=== PATIENT | female | born 2000 | race Native Hawaiian/Other Pacific Islander ===

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

== ENCOUNTER 2021-05-16 18:02 | Emergency (ER) | payer MEDICAID ==
[2021-05-16 19:39] VITALS: BP 121/71
[2021-05-16 20:42] LABS: Bacteria,Urine 4+ /HPF (Negative); Bilirubin,Urine NEG (Negative); Blood,Urine SM (Negative); Color,Urine Yellow (Yellow); Mucus,Urine FEW /HPF; Protein,Urine <15 mg/dL mg/dL (Negative); Urobilinogen,Urine < 2.0 mg/dL (<2.0)
[2021-05-16 20:45] LABS: Basophils % (Auto) 0.4 % (0.0-1.8); Eosinophils # (Auto) 0.4 K/mm3 (0.0-0.4); Eosinophils % (Auto) 4.4 % (0.0-4.3); Hematocrit 40.6 % (30.3-42.9); Hemoglobin 13.7 gm/dl (10.1-14.3); Lymphocytes % (Auto) 32.1 % (13.4-35.0); Mean Corpuscular HGB Conc 34 % (30-34); Mean Corpuscular Volume 80 fl (79-97); Monocytes # (Auto) 0.4 K/mm3 (0.0-0.8); Monocytes % (Auto) 4.6 % (0.0-7.3); Platelet Count 236 K/mm3 (140-440); Red Blood Count 5.09 M/mm3 (3.65-5.03); Red Cell Distribution Width 15.9 % (13.2-15.2)
--- NOTE | 2021-05-16 22:14 | Emergency Department Report ---
ED Female HPI - General Chief complaint: Vaginal Bleeding Stated complaint: BLEED IN URINE/3 MONTHS Time Seen by Provider: 05/16/21 22:02 Source: patient Mode of arrival: Ambulatory Limitations: No Limitations - History of Present Illness Initial comments: Chief complaint: Vaginal spotting HPI: This is a 21-year-old who is currently 12 weeks who presents with vaginal spotting. Last night when she wiped she saw pink vaginal discharge. She denies abdominal pain. She denies current bleeding. Her next appointment is scheduled for Tuesday. First ultrasound will be performed at that time. Complaint: other (Vaginal spotting) -: Gradual, Last night Severity: mild Consistency: now resolved Improves with: none Worsens with: none - Related Data Home Medications Medication Instructions Recorded Confirmed Last Taken No.137/Iron/Folic Acd 1 tab PO DAILY 08/13/19 08/14/19 08/12/19 [[facility] Tablet] 2100 Previous Rx's Medication Instructions Recorded Last Taken Type HYDROcodone/APAP 5-325 [Andale 1 - 2 each PO Q4HR PRN #30 tablet 08/13/19 Unknown Rx 5/325] Allergies Allergy/AdvReac Type Severity Reaction Status Date / Time No Known Allergies Allergy Unverified 08/13/19 13:12 ED Review of Systems ROS: Stated complaint: BLEED IN URINE/3 MONTHS Other details as noted in HPI Comment: All other systems reviewed and negative Constitutional: denies: chills, fever, malaise Respiratory: denies: cough, shortness of breath Gastrointestinal: denies: abdominal pain, nausea, vomiting Genitourinary: denies: urgency, dysuria ED Past Medical Hx - Past Medical History Previous Medical History?: No Hx Hypertension: No Hx Diabetes: No Hx Deep Vein Thrombosis: No Hx Renal Disease: No Hx Sickle Cell Disease: No Hx Seizures: No Hx Asthma: No Hx HIV: No - Surgical History Past Surgical History?: Yes Additional Surgical History: - Social History Smoking Status: Never Smoker Substance Use Type: None - Medications Home Medications: Home Medications Medication Instructions Recorded Confirmed Last Taken Type HYDROcodone/APAP 5-325 [Andale 1 - 2 each PO Q4HR PRN #30 tablet 08/13/19 Unknown Rx 5/325] No.137/Iron/Folic Acd 1 tab PO DAILY 08/13/19 08/14/19 08/12/19 History [[facility] Tablet] 2100 ED Physical Exam - General Limitations: No Limitations General appearance: alert, in no apparent distress, other (Well-appearing no acute distress) - Head Head exam: Present: atraumatic, normocephalic - Eye Eye exam: Present: normal appearance - ENT ENT exam: Present: mucous membranes moist - Neck Neck exam: Present: normal inspection - Respiratory Respiratory exam: Present: normal lung sounds bilaterally. Absent: respiratory distress - Cardiovascular Cardiovascular Exam: Present: regular rate, normal rhythm. Absent: systolic mur mur, diastolic murmur, rubs, gallop - GI/Abdominal GI/Abdominal exam: Present: soft, normal bowel sounds. Absent: distended, tenderness, guarding, rebound - Extremities Exam Extremities exam: Present: normal inspection - Back Exam Back exam: Present: normal inspection - Neurological Exam Neurological exam: Present: alert, oriented X3 - Psychiatric Psychiatric exam: Present: normal affect, normal mood - Skin Skin exam: Present: warm, dry, intact, normal color. Absent: rash ED Course Vital Signs 05/16/21 19:35 Temperature 98.3 F Pulse Rate 91 H Respiratory 18 Rate Blood Pressure 121/71 O2 Sat by Pulse 100 Oximetry ED Medical Decision Making - Lab Data Result diagrams: 05/16/21 20:34 Laboratory Results - last 24 hr 05/16/21 05/16/21 05/16/21 19:48 20:34 20:34 WBC 9.3 RBC 5.09 H Hgb 13.7 Hct 40.6 MCV 80 MCH 27 L MCHC 34 RDW 15.9 H Plt Count 236 Lymph % (Auto) 32.1 Craven % (Auto) 4.6 Eos % (Auto) 4.4 H Baso % (Auto) 0.4 Lymph # (Auto) 3.0 Craven # (Auto) 0.4 Eos # (Auto) 0.4 Baso # (Auto) 0.0 Seg Neutrophils % 58.5 Seg Neutrophils # 5.4 HCG, Quant 67391 H Urine Color Yellow Urine Turbidity Slightly-cloudy Urine pH 6.0 Ur Specific [place] 1.013 Urine Protein <15 mg/dl Urine Glucose (UA) Neg Urine Ketones Neg Urine Blood Sm Urine Nitrite Neg Urine Bilirubin Neg Urine Urobilinogen < 2.0 Ur Leukocyte Esterase Neg Urine WBC (Auto) 3.0 Urine RBC (Auto) 2.0 U Epithel Cells (Auto) 4.0 Urine Bacteria (Auto) 4+ Urine Mucus Few Blood Type 05/16/21 20:34 WBC RBC Hgb Hct MCV MCH MCHC RDW Plt Count Lymph % (Auto) Craven % (Auto) Eos % (Auto) Baso % (Auto) Lymph # (Auto) Craven # (Auto) Eos # (Auto) Baso # (Auto) Seg Neutrophils % Seg Neutrophils # HCG, Quant Urine Color Urine Turbidity Urine pH Ur Specific [place] Urine Protein Urine Glucose (UA) Urine Ketones Urine Blood Urine Nitrite Urine Bilirubin Urine Urobilinogen Ur Leukocyte Esterase Urine WBC (Auto) Urine RBC (Auto) U Epithel Cells (Auto) Urine Bacteria (Auto) Urine Mucus Blood Type A POSITIVE - Medical Decision Making Threatened miscarriage: CBC chemistry within normal limits. Blood type a positive. hCG appropriately elevated. Patient given return precautions inc luding significant bleeding or abdominal pain. Critical care attestation.: If time is entered above; I have spent that time in minutes in the direct care of this critically ill patient, excluding procedure time. ED Disposition Clinical Impression: Threatened miscarriage Disposition: 01 HOME / SELF CARE / HOMELESS Is pt being admited?: No Does the pt Need Aspirin: No Condition: Stable Instructions: Threatened Miscarriage Referrals: PRIMARY CARE [Referring] - 3-5 Days Forms: Work/School Release Form(ED)
== END 2021-05-16 22:26 | disposition home or self-care (01) ==
LOC: ED 18:02
DX: O26.891 Other specified pregnancy related conditions, first trimester (principal); N89.8 Other specified noninflammatory disorders of vagina; Z3A.12 12 weeks gestation of pregnancy; Z79.899 Other long term (current) drug therapy; Z98.890 Other specified postprocedural states
CPT/HCPCS: 36415; 81001; 84702; 85025; 86900; 86901; 99283

== ENCOUNTER 2021-11-25 00:06 | Outpatient (CLI) | payer MEDICAID ==
--- NOTE | 2021-11-25 02:58 | Ultrasound Report ---
OB ultrasound INDICATION: Leaking fluid FINDINGS: Single live intrauterine in cephalic position. JAKE measures 14.7 cm. Placenta is anterior. heart rate 138. Cervical length 4.6 cm. The BPD measures 35 weeks 4 days. Head circum ference 36 weeks 3 days. Abdominal circumference 38 weeks 0 days. Femoral length 36 weeks 1 day. Ultr asound age 36 weeks 4 days. weight 3118 g. IMPRESSION: Single live intrauterine as described above. Ultrasound age 36 weeks 4 days. Signer Name: Bartolome Chambers MD Signed: 11/25/2021 2:53 AM Workstation Name: [id number]
== END 2021-11-25 02:59 | disposition home or self-care (01) ==
LOC: TRG 00:06 → APU 00:08 → TRG 02:59
PROVIDERS: ATTEND Obstetrics & Gynecology
DX: O26.893 Other specified pregnancy related conditions, third trimester (principal); Z3A.38 38 weeks gestation of pregnancy
CPT/HCPCS: 36415; 76816; 84112

== ENCOUNTER 2021-12-02 07:24 | Observation (INO) | payer MEDICAID ==
[2021-12-01 11:39] LABS: Hematocrit 38.1 % (30.3-42.9); Hemoglobin 12.4 gm/dl (10.1-14.3); Mean Corpuscular HGB Conc 33 % (30-34); Mean Corpuscular Volume 73 fl (79-97); Platelet Count 201 K/mm3 (140-440); Red Blood Count 5.23 M/mm3 (3.65-5.03); Red Cell Distribution Width 15.8 % (13.2-15.2)
[2021-12-02 10:39] VITALS: BP 116/70
--- NOTE | 2021-12-02 12:19 | Ultrasound Report ---
ULTRASOUND BIOPHYSICAL PROFILE INDICATION: BPP, JAKE EFW for well being. COMPARISON: None available. FINDINGS: heart rate is 127 beats per minute. breathing movement = 2 Gross body movement = 2 tone = 2 Qualitative amniotic fluid volume = 2 IMPRESSION: biophysical profile = 11/16 Signer Name: Satish Womack Jr, MD Signed: 12/02/2021 12:15 PM Workstation Name: [id number]
--- NOTE | 2021-12-02 12:21 | Ultrasound Report ---
ULTRASOUND OBSTETRIC COMPLETE INDICATION / CLINICAL INFORMATION: BPP, JAKE EFW well being. Clinical Gestational Age (GA) in weeks.days: 39.6 TECHNIQUE: Transabdominal. COMPARISON: None available. FINDINGS: NUMBER: Single PRESENTATION: cephalic PLACENTA: Anterior, left lateral, grade 2 and free of the os. MATERNAL ADNEXA: No significant abnormality. AMNIOTIC FLUID VOLUME: normal AMNIOTIC FLUID INDEX (JAKE) in cm (if measured): 11.1 ANATOMY: anatomical survey was not performed. MEASUREMENTS: - Biparietal Diameter = 8.6 cm = 34.4 weeks.days - Head Circumference = 31.9 cm = 35.6 weeks.days - Abdominal Circumference = 36.4 cm = 40.2 weeks.days - Femur Length = 7.3 cm = 37.2 weeks.days - Estimated Weight (in grams, if calculated): 3480 - Heart Rate (beats per minute): 135 ADDITIONAL FINDINGS: None. PERCENTILE ESTIMATED WEIGHT (if calculated): 40 AVERAGE ULTRASOUND AGE (AUA) in weeks.days = 37.0 IMPRESSION: 1. Single intrauterine with AUA of 37.0 weeks.days 2. No significant sonographic abnormality. Signer Name: Satish Womack Jr, MD Signed: 12/02/2021 12:17 PM Workstation Name: [id number]
--- NOTE | 2021-12-02 17:08 | Event Note ---
Date: 12/02/21 Pt here because office scheduled her repeat c/section prior to her EDC and pt upset that she wants a TOLAC. Cervix closed and soft. BPP 8 and JAKE 11; NST reactive. Pt given labor precaution and discharged to return at 40wks prior to 41wks for scheduled repeat c/section if not in labor. All questions encouraged and answered and office personnel notified. All questions encouraged and answered
== END 2021-12-02 12:22 | disposition home or self-care (01) ==
LOC: APU 09:30 → INTOOBSV 09:30
PROVIDERS: ADMIT Obstetrics & Gynecology; ATTEND Obstetrics & Gynecology
DX: O36.8930 Maternal care for other specified fetal problems, third trimester, not applicable or unspecified (principal); Z20.822 Contact with and (suspected) exposure to COVID-19; Z3A.39 39 weeks gestation of pregnancy; Z98.891 History of uterine scar from previous surgery
CPT/HCPCS: 36415; 59025; 76816; 76819; 85027; 86592; G0378; G0379; U0003

== ENCOUNTER 2021-12-06 17:26 | Outpatient (CLI) | payer MEDICAID ==
[2021-12-06 17:50] VITALS: BP 95/63
--- NOTE | 2021-12-06 22:09 | Ultrasound Report ---
ULTRASOUND OBSTETRIC LIMITED ULTRASOUND BIOPHYSICAL PROFILE INDICATION / CLINICAL INFORMATION: Presentation/EFW/JAKE. Clinical Gestational Age (GA) in weeks, days: 40.2 TECHNIQUE: Transabdominal. COMPARISON: 12/02/2021 FINDINGS: BREATHING MOVEMENT = 2 GROSS BODY MOVEMENT = 2 TONE = 2 QUALITATIVE AMNIOTIC FLUID VOLUME = 2 TOTAL BIOPHYSICAL SCORE = 8/8 HEART RATE (beats per minute): 151 AMNIOTIC FLUID INDEX (cm) = 7.6 (normal = 7-24 cm) PRESENTATION: Transverse. Head maternal right. ADDITIONAL FINDINGS: Estimated age is 37 weeks 2 days. Previously 37 weeks 0 days. Estimated fe mahogany weight is 3360 g. IMPRESSION: 1. Biophysical Score = 8/8 2. Presentation transverse. 3. Amniotic fluid index 7.6 cm (previously 11.1) 4. Estimated weight is 3360 g. Signer Name: Al Schreiber MD Signed: 12/06/2021 10:04 PM Workstation Name: [id number]
--- NOTE | 2021-12-07 22:33 | History and Physical Report ---
History of Present Illness Date of examination: 12/07/21 Date of admission: 12/06/21 Chief complaint: Decreased movt. History of present illness: . Previous . Unstable lie and was transverse earlier today but vertex now at 2200HRS. 40+3wks. CHAI 12/03/21. Past History Past Medical History: no pertinent history Past Surgical History: section - Obstetrical History Expected Date of Delivery: 12/03/21 Actual Gestation: 40 Week(s) 4 Day(s) : 2 Para: 1 Medications and Allergies Allergies Allergy/AdvReac Type Severity Reaction Status Date / Time No Known Allergies Allergy Verified 12/02/21 11:18 Home Medications Medication Instructions Recorded Confirmed Last Taken Type No.137/Iron/Folic Acd 1 tab PO DAILY 08/13/19 12/06/21 12/06/21 History [[facility] Vitamins Tablet] Review of Systems All systems: negative Genitourinary: other (Decreased movts.) - Vital Signs Vital signs: Vital Signs Pulse Pulse Ox 66 95 12/06/21 17:49 12/06/21 17:49 Temp Pulse Resp BP Pulse Ox 98.0 F 63 18 95/63 82 L 12/06/21 17:50 12/06/21 22:04 12/06/21 17:50 12/06/21 17:50 12/06/21 22:04 - Physical Exam Lungs: Positive: Normal air movement Abdomen: Positive: normal appearance, soft, distention, normal bowel sounds Uterus: Positive: enlarged, normal contour Extremities: Positive: normal - Obstetrical FHR: auscultation normal Results All other labs normal. Assessment and Plan - Patient Problems (1) Postmaturity , 40-42 weeks gestation Status: Acute (2) Decreased movement Status: Acute (3) Previous delivery affecting , antepartum Status: Acute (4) Unstable lie of fetus Status: Acute Plan to address problem: For repeat inez.
[2021-12-07] MEDS ORDERED: METOCLOPRAMIDE 10 MG/2 ML INJ IV ONE (22:34)
[2021-12-07] MEDS ORDERED: FAMOTIDINE 20 MG/2 ML INJ IV ONE (22:34)
[2021-12-07] MEDS ORDERED: BICITRA ORAL LIQD 30ML PO ONE (22:34)
[2021-12-07] MEDS ORDERED: LACTATED RINGERS 1,000 ML IV SCH (22:45)
[2021-12-07] MEDS ORDERED: OXYTOCIN DRIP 30 UNITS/500 ML BAG IV SCH (23:00)
[2021-12-07] MEDS ORDERED: ceFAZolin/Water 2 GM/20 ML 2 GM/20 ML SYRINGE IV NR (23:00)
== END 2021-12-06 22:03 | disposition home or self-care (01) ==
LOC: APU 17:26 → TRG 17:26
PROVIDERS: ATTEND Obstetrics & Gynecology
DX: O36.8130 Decreased fetal movements, third trimester, not applicable or unspecified (principal); Z3A.40 40 weeks gestation of pregnancy
CPT/HCPCS: 76816; 76819

== ENCOUNTER 2021-12-07 17:39 | Inpatient (IN) | payer MEDICAID ==
[2021-12-08] MEDS ORDERED: LOPERAMIDE 2 MG CAP PO PRN (00:22)
[2021-12-08] MEDS ORDERED: TERBUTALINE 1 MG/1 ML INJ SUB-Q PRN (00:22)
[2021-12-08] MEDS ORDERED: CARBOPROST TROMETHAMINE 250 MCG/1 ML INJ IM PRN (00:22)
[2021-12-08] MEDS ORDERED: MINERAL OIL 30 ML ORAL LIQD PO PRN (00:22)
[2021-12-08] MEDS ORDERED: OXYTOCIN 10 UNIT/1 ML INJ IM PRN (00:22)
[2021-12-08] MEDS ORDERED: ePHEDrine SULFATE 50 MG/1 ML INJ IV PRN (00:22)
[2021-12-08] MEDS ORDERED: NalbUPHINE 10 MG/1 ML INJ IV PRN (00:22)
[2021-12-08] MEDS ORDERED: miSOPROStol 200 MCG TAB PR PRN (00:22)
[2021-12-08] MEDS ORDERED: METHYLERGONOVINE MALEATE 0.2 MG/ML VIAL IM PRN (00:22)
[2021-12-08] MEDS ORDERED: ACETAMINOPHEN 325 MG TAB PO PRN (00:22)
[2021-12-08] MEDS ORDERED: LIDOCAINE (2%) 20 MG/1 ML VIAL 20 ML MDV INFILTRATI ONE (00:22)
[2021-12-08 00:30] LABS: Hematocrit 40.2 % (30.3-42.9); Hemoglobin 13.3 gm/dl (10.1-14.3); Mean Corpuscular HGB Conc 33 % (30-34); Mean Corpuscular Volume 73 fl (79-97); Platelet Count 179 K/mm3 (140-440); Red Cell Distribution Width 16.4 % (13.2-15.2)
--- NOTE | 2021-12-08 06:52 | Ultrasound Report ---
Ultrasound obstetrical follow-up INDICATION: well-being FINDINGS: Single living intrauterine in the cephalic position. Amniotic fluid/JAKE measures 10.6 cm. heart rate 135 bpm. IMPRESSION: JAKE measures 10.6 cm, as above Signer Name: Monico Rodriguez MD Signed: 12/08/2021 6:48 AM Workstation Name: [id number]
--- NOTE | 2021-12-08 07:34 | History and Physical Report ---
History of Present Illness Date of examination: 12/08/21 Date of admission: 12/08/2021 Chief complaint: Trial of labor after (TOLAC), post-due date, induction of labor History of present illness: 21-year-old at 40-4/7 weeks gestation is admitted to labor and delivery for trial of labor after (TOLAC) and induction of labor secondary to post due date. There is no vaginal bleeding or leaking fluid. There are irregular contractions. There is good movement. Review of the records reveals that the patient desired a vaginal after (). However, an ultrasound was performed 2 days ago which revealed that the fetus was transverse lie position. Therefore, a repeat delivery was scheduled for yesterday. However, this surgical case was postponed secondary to acuity and staffing constraints. The provider on duty yesterday reported that the fetus was now likely to be in vertex position. OB ultrasound limited was performed today and that confirmed that the fetus was in the vertex position. Therefore, trial of labor after (TOLAC) was pursued. The patient was counseled regarding the risk of according to ACOG Practice Bulletin 205. She had a primary low-transverse delivery 2 years ago at [facility] secondary to breech presentation. I reviewed the operative report, and I confirmed that it was a low transverse delivery with a 2 layer closure. The patient understands that the risk of uterine rupture is approximately 1-2%. According to the [facility] calculator, her chances of a successful are approximately 49-50%. The patient understands the risk of hemorrhage, possible hysterectomy, and /maternal and morbidity and mortality. Voicing understanding of all this, the patient wishes to proceed with a trial of labor after (TOLAC). Induction of labor is to be initiated. Past History Past Medical History: other (Obesity) Past Surgical History: section Family/Genetic History: none Social history: no significant social history - Obstetrical History Expected Date of Delivery: 12/04/21 Actual Gestation: 40 Week(s) 4 Day(s) : 2 Para: 1 Hx # Term Pregnancies: 1 Number of Pregnancies: 0 Spontaneous Abortions: 0 Induced : 0 Number of Living Children: 1 Medications and Allergies Allergies Allergy/AdvReac Type Severity Reaction Status Date / Time No Known Allergies Allergy Verified 12/02/21 11:18 Home Medications Medication Instructions Recorded Confirmed Last Taken Type No.137/Iron/Folic Acd 1 tab PO DAILY 08/13/19 12/06/21 12/06/21 History [[facility] Vit[facility] Tablet] Active Meds: Active Medications Acetaminophen (Acetaminophen 325 Mg Tab) 650 mg PO Q4H PRN PRN Reason: Pain, Mild (1-3) Carboprost Tromethamine (Carboprost Tromethamine 250 Mcg/1 Ml Inj) 250 mcg IM ONCE PRN PRN Reason: Uterine Bleeding Ephedrine Sulfate (Ephedrine Sulfate 50 Mg/1 Ml Inj) 10 mg IV Q2M PRN PRN Reason: Hypotension Oxytocin/Sodium Chloride (Pitocin/Ns 30 Unit/500ml) 30 units in 500 mls @ 2 mls/hr IV TITR RONALD; Protocol Lactated Ringer's (Lactated Ringers) 1,000 mls @ 125 mls/hr IV DIRECT RONALD Methylergonovine Maleate (Methylergonovine Maleate 0.2 Mg/Ml Vial) 0.2 mg IM ONCE PRN PRN Reason: Uterine Bleeding Nalbuphine HCl (Nalbuphine 10 Mg/1 Ml Inj) 10 mg IV Q2H PRN PRN Reason: Pain, Moderate (4-6) Terbutaline Sulfate (Terbutaline 1 Mg/1 Ml Inj) 0.25 mg SUB-Q ONCE PRN PRN Reason: Hyperstimulation/Hypertonicity Review of Systems All systems: negative - Vital Signs Vital signs: Vital Signs Pulse Pulse Ox 76 99 12/07/21 19:35 12/07/21 19:35 Temp Pulse Resp BP Pulse Ox 98.4 F 79 18 106/52 97 12/07/21 23:06 12/08/21 07:26 12/07/21 23:06 12/08/21 06:21 12/08/21 07:26 - Physical Exam Breasts: Positive: normal Cardiovascular: Regular rate Lungs: Positive: Normal air movement Abdomen: Positive: normal appearance Genitourinary (Female): Positive: normal external genitalia, normal perenium Vulva: both: normal Vagina: Positive: normal moisture Uterus: Positive: enlarged Adnexa: both: normal Anus/Rectum: Positive: normal perianal skin Extremities: Positive: normal Deep Tendon Reflex Grade: Normal +2 - Obstetrical FHR: category 1 Uterine Contraction Monitor Mode: External Cervical Dilatation: 0.5 Cervical Effacement Percentage: 50 station: -3 Uterine Contraction Pattern: Irregular Results Result Diagrams: 12/07/21 23:55 Abnormal lab results 12/07/21 Range/Units 23:55 RBC 5.50 H (3.65-5.03) M/mm3 MCV 73 L (79-97) fl MCH 24 L (28-32) pg RDW 16.4 H (13.2-15.2) % All other labs normal. Ultrasound: report reviewed, image reviewed, other (OB Ultrasound Limited= SLIUP. Vertex (today). EFW= 3360 g (25th %-ile). JAKE= 7.6 cm.) Assessment and Plan - Patient Problems (1) 40 weeks gestation of Current Visit: Yes Status: Acute Plan to address problem: care is up-to-date at [facility] [employer] [employer]. 1 hour glucose tolerance test was normal. She is GBS negative. (2) Obesity affecting in third trimester, antepartum Current Visit: Yes Status: Acute Plan to address problem: BMI is 38.5. (3) Postmaturity , 40-42 weeks gestation Current Visit: No Status: Acute Plan to address problem: The patient is due date is passed. She is here for induction of labor. (4) Desires (vaginal after ) trial Current Visit: Yes Status: Acute Plan to address problem: Review of the records reveals that the patient desired a vaginal after (). The patient was counseled regarding the risk of according to ACOG Practice Bulletin 205. She had a primary low-transverse delivery 2 years ago at [facility] secondary to breech presentation. I reviewed the operative report, and I confirmed that it was a low transverse delivery with a 2 layer closure. The patient understands that the risk of uterine rupture is approximately 1-2%. According to the [facility] calculator, her chances of a successful are approximately 49-50%. The patient understands the risk of hemorrhage, possible hysterectomy, and /maternal and morbidity and mortality. Voicing understanding of all this, the patient wishes to proceed with a trial of labor after (TOLAC). Consent forms were signed. As hemoglobin is >13, I have not placed any units of blood on hold. (5) Encounter for induction of labor Current Visit: Yes Status: Acute Plan to address problem: Ripen cervix with Cook's catheter and low-dose Pitocin. Intravaginal Monoket to be placed to augment cervical ripening.
[2021-12-08] MEDS: LACTATED RINGERS 1,000 ML IV SCH ×2 (13:54→21:09)
--- NOTE | 2021-12-08 17:28 | Event Note ---
Date: 12/08/21 pt seen and nurse states العلي bulb fell out 16:38 and exam by her was /3. PT desires epidural and diet. Will give diet first and then epidural. Hopeful for vaginal delivery. FHR remains category and irregular ctx.
[2021-12-09] MEDS ORDERED: NALOXONE 0.4 MG/1 ML INJ IV PRN (00:05)
[2021-12-09] MEDS ORDERED: ePHEDrine SULFATE 50 MG/1 ML INJ IV PRN (00:05)
--- NOTE | 2021-12-09 00:07 | Anesthesia Day of Surgery ---
Anesthesia Day of Surgery - Day of Surgery Patient Examined: Yes Patient H&P Reviewed: Yes Patient is NPO: Yes Beta Blockers: No Cardiac Clearance: No Pulmonary Clearance: No Abdiel's Test: N/A
--- NOTE | 2021-12-09 00:07 | Anesthesia Consultation ---
Anesthesia Consult and Med Hx Date of service: 12/09/21 - Airway Anesthetic Teeth Evaluation: Good ROM Head & Neck: Adequate Mental/Hyoid Distance: Adequate Mallampati Class: Class II Intubation Access Assessment: Probably Good - Pulmonary Exam CTA: Yes - Cardiac Exam Cardiac Exam: RRR - Pre-Operative Health Status ASA Pre-Surgery Classification: ASA2 Proposed Anesthetic Plan: Epidural - Pulmonary Hx Smoking: No Hx Asthma: No Hx Respiratory Symptoms: No SOB: No COPD: No Home Oxygen Therapy: No Hx Pneumonia: No Hx Sleep Apnea: No - Cardiovascular System Hx Hypertension: No Hx Coronary Artery Disease: No Hx Heart Attack/AMI: No Hx Angina: No Hx Percutaneous Transluminal Coronary Angioplasty (PTCA): No Hx Cardia Arrhythmia: No Hx Pacemaker: No Hx Internal Defibrillator: No Hx Valvular Heart Disease: No Hx Heart Murmur: No Hx Peripheral Vascular Disease: No - Central Nervous System Hx Neuromuscular Disorder: No Hx Seizures: No CVA: No Hx Back Pain: No Hx Psychiatric Problems: No - Gastrointestinal Hx Ulcer: No Hx Gastroesophageal Reflux Disease: No - Endocrine Hx Renal Disease: No Hx End Stage Renal Disease: No Hx Cirrhosis: No Hx Liver Disease: No Hx Insulin Dependent Diabetes: No Hx Non-Insulin Dependent Diabetes: No Hx Thyroid Disease: No Hx Hypothyroidism: No Hx Hyperthyroidism: No - Hematic Hx Anemia: No Hx Sickle Cell Disease: No - Other Systems Hx Alcohol Use: No Hx Substance Use: No Hx Cancer: No Hx Obesity: Yes
--- NOTE | 2021-12-09 00:08 | Progress Note ---
Labor Epidural - Labor Epidural Start Time: 23:45 Stop Time: 23:51 Performed by:: CECY KRAUSE Procedure: Epidural Requested for Labor Pain. H&P and PT Chart reviewed and consent obtained. Time out performed and the procedure was explained, all questions answered. Patient was placed in a sitting position with monitors applied. The PTs back was prepped and draped in usual sterile fashion. The Skin was localized with 3 mL of 1% lidocaine at L3-L4. A 17-gauge Touhy epidural needle was advanced to ADDISON with saline at 7 cm and no blood/CSF was noted via epidural needle. Epidural catheter was advanced to 12 cm. There was negative aspiration for blood and CSF in the catheter and negative response to a test dose of 3 ml 1.5% lidocaine w/ Epi and a sterile dressing was applied Patient tolerated the procedure well and there were no immediate complications noted.
[2021-12-09] MEDS: fentaNYL-BUPIV 2 MCG/ML-0.125% 200 MCG/100 ML BAG EPIDURAL SCH ×2 (00:32→07:50)
[2021-12-09] MEDS: OXYTOCIN DRIP 30 UNITS/500 ML BAG IV SCH ×2 (02:08→10:15)
[2021-12-09] MEDS: LACTATED RINGERS 1,000 ML IV SCH ×2 (05:03→06:49)
[2021-12-09] MEDS ORDERED: ACETAMINOPHEN 500 MG TAB PO ONE (05:28)
[2021-12-09 06:12] LABS: Hematocrit 34.5 % (30.3-42.9); Mean Corpuscular HGB Conc 32 % (30-34); Mean Corpuscular Volume 73 fl (79-97); Platelet Count 162 K/mm3 (140-440); Red Blood Count 4.71 M/mm3 (3.65-5.03); Red Cell Distribution Width 16.5 % (13.2-15.2)
[2021-12-09] MEDS ORDERED: GENTAMICIN 450 MG in SODIUM CHLORIDE 0.9% 100 ML IV SCH (06:30)
[2021-12-09] MEDS ORDERED: AMPICILLIN/NS 2 GM/100 ML 2 GM/100 ML BAG IV SCH (07:00)
--- NOTE | 2021-12-09 07:02 | Event Note ---
CHIEF COMPLAINT: HD #2, Trial of labor after (TOLAC), post-due date, induction of labor HISTORY OF PRESENT ILLNESS: 21-year-old at 40-5/7 weeks gestation is admitted to labor and delivery for trial of labor after (TOLAC) and induction of labor secondary to post due date. OBJECTIVE: T= 102.7F P= 119 EFM= category 2 TOCO= q 5-7 min SVE= 5/80%/-3. AROM'ed last night. IUPC and FSE in place. LABORATORY: WBC= 12.9 Lactate= 1.6 Blood cultures= drawn and pending RADIOLOGY: OB Ultrasound Limited= SLIUP. Vertex (today). EFW= 3360 g (25th %-ile). JAKE= 7.6 cm. IMPRESSION: 1.) 40 weeks 2.) Post-due date 3.) Maternal obesity 4.) History of previous delivery 5.) Desires 6.) Induction of labor 7.) Intra-amniotic infection and inflammation, suspected PLAN: 1.) And lieu of the temperature >39 C and baseline a heart rate >160 bpm, this fulfills the clinical criteria for suspected intra-amniotic infection and inflammation. Fortunately, the WBC is not >15,000 and there is no purulent- appearing fluid coming from the vagina. 2.) As such, intravenous ampicillin and gentamicin were ordered. Nevertheless, the ultimate treatment is delivery. 3.) Continue Pitocin. 4.) I discussed with the patient that if the electronic heart rate tracing evolves to a category 3 and she is remote from complete cervical dilation and/or pursuing a vaginal delivery is impractical/unlikely, then there will be the recommendation of expedited repeat delivery.
[2021-12-09] MEDS ORDERED: MINERAL OIL 30 ML ORAL LIQD ONE (09:28)
[2021-12-09] MEDS ORDERED: LIDOCAINE (2%) 20 MG/1 ML VIAL 20 ML MDV INFILTRATI ONE (09:54)
[2021-12-09] MEDS ORDERED: HYDROCORTISONE 25 MG RECTAL SUPP PR PRN (11:00)
--- NOTE | 2021-12-09 11:05 | Procedure Note ---
OB Delivery Note - Delivery Date of Delivery: 12/09/21 (0946) Surgeon: ANGELLA MOREIRA Estimated blood loss: other (400) - Vaginal Delivery presentation: vertex Delivery position: OA Intrapartum events: febrile- temp >100.3, mult.variable deceleratio Delivery induction: oxytocin Delivery augmentation: rupture of membranes, pitocin Delivery monitor: internal FHT, internal uterine Route of delivery: Delivery placenta: spontaneous Delivery cord: nuchal cord, 3 umbilical vessels Episiotomy: none Delivery laceration: 2nd degree, vaginal side wall Delivery repair: vicryl Anesthesia: epidural Delivery comments: of a live 7'3 female over 2nd degree vaginal wall lacerations and perineal laceration under epidural anesthesia with Apgars of 8 and 9 at 0946 on 12/09/2021. Nuchal cord x 1 easily manually reduced with delivery of body. Infant directly to maternal abd/chest, skin to skin contact. Delayed Cord clamping and cutting; Cord cut by the Father of the Baby. Spontaneous delivery of placenta complete and intact with Oleary side presenting at 0951. Fundus is firm and midline located 3 below the U. Lochia is scant. Vaginal Wall and Perineal Lacerations repaired with 2-[address]-1 under local 2% Lidocaine. Placenta to pathology. - Infant A at 1 minute: 8 at 5 minutes: 9 Infant Gender: Female (7'3)
[2021-12-09] MEDS ORDERED: diphenhydrAMINE 25 MG CAP PO PRN (11:30)
[2021-12-09] MEDS ORDERED: WITCH HAZEL/ GLYCERIN PAD TP PRN (11:30)
[2021-12-09] MEDS ORDERED: LANOLIN/ZINC/DIMETHICONE (LANSINOH) 7 GM TP PRN (12:00)
[2021-12-09] MEDS ORDERED: HYDROcodone/ACETAMINOPHEN 5-325 MG TAB PO PRN (12:00)
[2021-12-09] MEDS ORDERED: PROMETHAZINE 25 MG TAB PO PRN (12:00)
[2021-12-09] MEDS: IBUPROFEN 800 MG TAB PO SCH ×2 (12:36→23:15)
--- NOTE | 2021-12-09 13:14 | Post Anesthesia Evaluation ---
- Post Anesthesia Evaluation Patient Participated: Yes Airway Patent: Yes Stable Respiratory Function: Yes Nausea/Vomiting: No Temp > 96.8F: Yes Pain Manageable: Yes Adequeate Hydration: Yes Anesthesia Complications: No Block Receding Appropriately: Yes Patient on Ventilator: No
[2021-12-10 01:00] LABS: Hematocrit 28.6 % (30.3-42.9); Hemoglobin 9.1 gm/dl (10.1-14.3)
[2021-12-10] MEDS: IBUPROFEN 800 MG TAB PO SCH ×2 (05:11→12:19)
[2021-12-10] MEDS ORDERED: PRENATAL VIT27-FE FUMARATE-FOLIC ACID VIT TAB PO SCH (10:00)
--- NOTE | 2021-12-10 12:00 | Discharge Summary ---
Providers - Providers Date of Admission: 12/08/21 00:22 Date of discharge: 12/10/21 Attending physician: NEELA CRUZ Primary care physician: NEELA CRUZ Hospitalization Reason for admission: other (TOLAC) Delivery: Episiotomy: none Laceration: 2nd degree (vaginal wall) Other procedures: none complications: none Discharge diagnosis: IUP at term delivered, baby: female Condition at discharge: Good Disposition: 01 HOME / SELF CARE / HOMELESS Plan - Discharge Medications Prescriptions: Ibuprofen [Motrin 800 MG tab] 800 mg PO Q8HR #30 tablet - Provider Discharge Summary Activity: no sex for 6 weeks, no heavy lifting 4 weeks, no strenuous exercise Diet: routine Instructions: routine Additional instructions: [] Smoking cessation referral if applicable(refer to patient education folder for contact #) [] Refer to [facility] Booklet Call your doctor immediately for: * Fever > 100.5 * Heavy vaginal bleeding ( >1 pad per hour) * Severe persistent headache * Shortness of breath * Reddened, hot, painful area to leg or breast * Drainage or odor from incision. * - Follow up plan Follow up: NEELA CRUZ MD [Primary Care Provider] - 6 Weeks
[2021-12-10 17:40] VITALS: BP 125/72
== END 2021-12-10 20:35 | disposition home or self-care (01) | DRG 775 ==
LOC: TRG 17:39 → LD 17:41 → TRG 12-08 07:30 → OB 12-09 12:45
PROVIDERS: ADMIT Obstetrics & Gynecology; ATTEND Obstetrics & Gynecology
PROC: 10E0XZZ Delivery of Products of Conception, External Approach (ICD-10-PCS; principal; 2021-12-09)
PROC: 10907ZC Drainage of Amniotic Fluid, Therapeutic from Products of Conception, Via Natural or Artificial Opening (ICD-10-PCS; 2021-12-09)
PROC: 10H07YZ Insertion of Other Device into Products of Conception, Via Natural or Artificial Opening (ICD-10-PCS; 2021-12-09)
PROC: 3E033VJ Introduction of Other Hormone into Peripheral Vein, Percutaneous Approach (ICD-10-PCS; 2021-12-09)
PROC: 3E0R3BZ Introduction of Anesthetic Agent into Spinal Canal, Percutaneous Approach (ICD-10-PCS; 2021-12-09)
PROC: 00HU33Z Insertion of Infusion Device into Spinal Canal, Percutaneous Approach (ICD-10-PCS; 2021-12-09)
DX: O76 Abnormality in fetal heart rate and rhythm complicating labor and delivery (principal); Z37.0 Single live birth; O48.0 Post-term pregnancy; Z3A.40 40 weeks gestation of pregnancy; Z20.822 Contact with and (suspected) exposure to COVID-19; O99.214 Obesity complicating childbirth; O69.81X0 Labor and delivery complicated by cord around neck, without compression, not applicable or unspecified; O34.211 Maternal care for low transverse scar from previous cesarean delivery
CPT/HCPCS: 36415; 76815; 76816; 76819; 82140; 85014; 85018; 85027; 86592; 86850; 86900; 86901; 87040; 88307; G0378; J3490; J0290; J1580; J2300; J2590; J7120; U0003